=== PATIENT | male | born 1975 | race Caucasian/White ===

== ENCOUNTER 2016-03-26 21:32 | Emergency (ER) | payer MEDICARE ==
--- NOTE | 2016-03-26 21:55 | ED Physician Documentation ---
General Adult - HISTORIAN Historian: patient - HPI Stated Complaint: cough Chief Complaint: General Adult Onset: days ago (3) Severity: moderate Further Comments: yes (Pt is a 40 yo male with cough x 3 days which is worsening. Pt's is currently being tx'd for pneumonia. Pt has hx Crohn's disease and has had some abd pain and some blood in stool, but pt states that he has chronic abd pain. Pt wishes to avoid steroids due to osteoporesis and orthopedic problems he has had because of this.) - ROS CONST: chills, other (malaise) EYES/ENT: none CVS/RESP: cough GI/: abdominal pain MS/SKIN/LYMPH: none - PAST HX Past History: other (Anxiety/depression, GERD, HTN, Crohn's dz, ) Surgeries/Procedures: other (appendectomy, tonsillectomy, bladder surg, alexa- cath, mult ortho surg.) Allergies/Adverse Reactions: Allergies Allergy/AdvReac Type Severity Reaction Status Date / Time aspirin Allergy Verified 03/26/16 21:48 ciprofloxacin [From Cipro] Allergy Verified 03/26/16 21:48 ciprofloxacin HCl Allergy Verified 03/26/16 21:48 [From Cipro] ondansetron HCl Allergy Verified 03/26/16 21:48 [From Zofran (as hydrochloride)] Penicillins Allergy Verified 03/26/16 21:48 ibuprofen AdvReac Nausea/Vomi Verified 03/26/16 21:48 ting Home Medications: Ambulatory Orders Medication Instructions Recorded Aripiprazole [Abilify] 10 mg PO D 03/09/16 Dicyclomine HCl [Bentyl] 20 mg PO QID 03/09/16 Duloxetine HCl [Cymbalta] 20 mg PO D 03/09/16 Gabapentin [Gabapentin] 600 mg PO TID 03/09/16 traZODone HCL [Desyrel] 150 mg PO HS 03/09/16 Lorazepam [Lorazepam] 1 mg PO TID 03/26/16 Potassium Chloride [Klor-Con M10] 10 meq PO DAILY 03/26/16 - SOCIAL HX Smoking History: non-smoker - FAMILY HX Family History: No - VITAL SIGNS Vital Signs: Vital Signs Temp Pulse Resp BP Pulse Ox 125/82 03/09/16 04:09 - REVIEWED ASSESSMENTS Nursing Assessment Reviewed: Yes Vitals Reviewed: Yes Progress - Progress Progress: 1 L NS IVF Levaquin 500 mg po Azithromycin 500 mg po Robitussin AC 10 ml po Pt declined tx with steroid. Rx Levaquin 500 mg. Take one by mouth once daily for 10 days. Rx Azithromycin 250 mg. Take one daily for 5 days. Rx Robitussin AC (with codeine). Take 10 ml (two teaspoons) by mouth every 4 to 6 hrs as needed for cough. f/u pcp. - EKG/XRAY/CT XRAY: chest (no acute cardiopulmonary process) General Adult Physical Exam - PHYSICAL EXAM GENERAL APPEARANCE: mild distress EENT: eye inspection normal, ENT inspection normal, pharynx normal NECK: normal inspection, supple RESPIRATORY: no resp distress, chest non-tender, other (cough) CVS: reg rate & rhythm, heart sounds normal ABDOMEN: soft, no organomegaly, normal bowel sounds, tenderness (LLQ, mild) BACK: normal inspection, no CVA tenderness SKIN: warm/dry, normal color EXTREMITIES: non-tender, normal range of motion, no evidence of injury, no edema NEURO: oriented X3, motor nml, sensation nml Discharge Clincal Impression: cough URI (upper respiratory infection) Qualifiers: URI type: unspecified URI Qualified Code(s): J06.9 - Acute upper respiratory infection, unspecified Referrals: Mani Cullen DO [Primary Care Provider] - Home Medications: Ambulatory Orders Aripiprazole [Abilify] 10 mg PO D 03/09/16 Dicyclomine HCl [Bentyl] 20 mg PO QID 03/09/16 Duloxetine HCl [Cymbalta] 20 mg PO D 03/09/16 Gabapentin [Gabapentin] 600 mg PO TID 03/09/16 traZODone HCL [Desyrel] 150 mg PO HS 03/09/16 Lorazepam [Lorazepam] 1 mg PO TID 03/26/16 Potassium Chloride [Klor-Con M10] 10 meq PO DAILY 03/26/16 Condition: Good Disposition: HOME, SELF-CARE Decision to Admit: NO Decision Time: 23:52
[2016-03-26] MEDS ORDERED: 0.9 % SODIUM CHLORIDE 1,000 ML IV ONE (21:59)
[2016-03-26] MEDS ORDERED: HEPARIN SODIUM 500 UNIT/5 ML DISP.SYRIN IV ONE (22:41)
[2016-03-26 23:07] LABS: BASOPHILS % 0.2 (0.0-1.5); EOSINOPHILS % 3.8 % (0.0-6.8); LYMPHOCYTES # 1.6 # k/uL (0.6-4.0); MEAN CORPUSCULAR HEMOGLOBIN 29.7 pg (28.0-34.0); MONOCYTES # 0.4 # k/uL (0.0-0.9); MONOCYTES % 7.4 % (0.0-11.0); NEUTROPHILS # 3.1 # k/uL (1.4-7.7)
[2016-03-26 23:08] LABS: eGFR (African) > 60; eGFR (Non-African) > 60
[2016-03-26] MEDS ORDERED: guaiFENesin/CODEINE PHOS 30ML BOTTLE PO ONE (23:31)
[2016-03-26] MEDS ORDERED: AZITHROMYCIN 250 MG TABLET PO ONE (23:49)
[2016-03-26] MEDS ORDERED: LEVOFLOXACIN 500 MG TABLET PO ONE (23:49)
[2016-03-27] MEDS ORDERED: HEPARIN SODIUM,PORCINE 30 UNITS INJ IV ONE (00:42)
[2016-03-27 02:05] VITALS: BP 134/86
--- NOTE | 2016-03-27 06:36 | Diagnostic Imaging Report ---
Report Submission Date: Mar 26, 2016 10:18:51 PM MAINFRAME PROGRAMMER ANALYST Patient ~ Study Name: BRADEN VALERA ~ Date: Mar 26, 2016 10:06:37 PM MAINFRAME PROGRAMMER ANALYST ~ Modality Type: CR Gender: M ~ Description: CHEST : 77 ~ Institution: [facility] Physician: MATTHEW OWENS ~ ~ ~ ~ Chest two views HISTORY: ~ 3 days of cough FINDINGS: ~ A superior vena cava vascular access catheter, calcified right upper lobe granuloma, and lower thoracic vertebroplasties are observed. ~Geographic regions of sclerosis are present in each humeral head, suspicious for avascular necrosis. ~The lungs are clear. ~No pleural effusions are observed. ~Heart size and pulmonary vascularity are normal. ~ IMPRESSION: ~ Clear lungs and normal heart size. ~ Vascular catheter and lower thoracic vertebroplasties. 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 ~ Electronically signed on Mar 26, 2016 10:18:51 PM MAINFRAME PROGRAMMER ANALYST by: Mal FLORES
== END 2016-03-27 00:52 | disposition home or self-care (01) ==
LOC: ED 21:32
DX: J06.9 Acute upper respiratory infection, unspecified (principal)
CPT/HCPCS: 71020; 80053; 82150; 82947; 85025; J1642; J7030; 96360; 99283